=== PATIENT | male | born 1955 | race Hispanic/Latino ===

== ENCOUNTER 2019-06-30 20:17 | Emergency (ER) | payer OTHER, SELFPAY ==
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
== END 2019-06-30 23:29 | disposition home or self-care (01) ==
LOC: ERS 20:17
DX: S02.40EA Zygomatic fracture, right side, initial encounter for closed fracture (principal); S02.85XA Fracture of orbit, unspecified, initial encounter for closed fracture; I10 Essential (primary) hypertension; E11.9 Type 2 diabetes mellitus without complications; V49.9XXA Car occupant (driver) (passenger) injured in unspecified traffic accident, initial encounter
CPT/HCPCS: 70450; 70486; 72125

== ENCOUNTER 2021-04-08 09:55 | Emergency (ER) | payer MEDICARE, SELFPAY ==
[~2021-04-08 09:55] MED LIST: Iopamidol 370 76% 100 ML VIAL ONE
[2021-04-08 10:35] LABS: #Eosinphils 0.1 thou/uL (0.0-0.7); #Lymphocytes 1.1 thou/uL (1.20-3.40); #Monocytes 1.3 thou/uL (0.11-0.59); #Neutrophils 14.2 thou/uL (1.40-6.50); %Basophils 0.1 % (0.0-1.0); %Eosinophils 0.3 % (0.0-10.0); %Lymphocytes 6.7 % (21.0-51.0); %Monocytes 7.7 % (0.0-10.0); %Neutrophils 85.1 % (42.0-75.0); Hemoglobin 10.3 g/dL (14.0-18.0); Mean Corpuscular Hemoglobin 31.7 pg (27.0-31.0); Mean Corpuscular Volume 96.2 fL (78.0-98.0); Mean Platelet Volume 6.6 fL (7.4-10.4); Platelet Count 469 thou/uL (130-400); RBC Distribution Width 11.9 % (11.5-14.5); Red Blood Cell (RBC) Count 3.24 mill/uL (4.70-6.10); White Blood Cell (WBC) Count 16.7 thou/uL (4.8-10.8)
[2021-04-08 11:03] LABS: ALT (SGPT) 21 U/L (8-55); AST (SGOT) 28 U/L (5-34); Albumin 2.3 g/dL (3.4-4.8); Alkaline Phosphatase 366 U/L (40-110); Anion Gap 12 mmol/L (10-20); BUN (Urea Nitrogen) 14 mg/dL (8.4-25.7); Bilirubin, Total 0.7 mg/dL (0.2-1.2); Calc. Creatinine Clearance 0 mL/min (70-130); Calcium 8.1 mg/dL (7.8-10.44); Carbon Dioxide 26 mmol/L (23-31); Chloride 101 mmol/L (98-107); Globulin 3.7 g/dL (2.4-3.5); Glucose 156 mg/dL (80-115); Potassium 3.7 mmol/L (3.5-5.1); Sodium 135 mmol/L (136-145)
[2021-04-08 12:05] LABS: Lipase 11 U/L (8-78); Magnesium 1.9 mg/dL (1.6-2.6)
[2021-04-08] MEDS ORDERED: cefTRIAXone\\ROCEPHIN 1 GM VIAL ONE (13:21)
== END 2021-04-08 10:43 | disposition home or self-care (01) ==
LOC: ERS 09:55
DX: R18.8 Other ascites (principal); K59.00 Constipation, unspecified; D72.829 Elevated white blood cell count, unspecified; I10 Essential (primary) hypertension; E11.9 Type 2 diabetes mellitus without complications; Z86.16 Personal history of COVID-19
CPT/HCPCS: 71045; 74177; 80053; 83690; 83735; 85025; 93005; 94760; 96374; J0696; Q9967

== ENCOUNTER 2024-03-13 11:06 | Inpatient (IN) | payer MEDICARE ==
[2024-03-13] MEDS ORDERED: Ipratropium/Albuterol 3 ML NEB ONE ×2 (12:14→16:25)
[2024-03-13] MEDS ORDERED: methylPREDNISolone Sod Succ/PF 125 MG/2 ML VIAL ONE (12:24)
[2024-03-13] MEDS ORDERED: Ketorolac Tromethamine 30 MG (1 mL) VIAL ONE (12:24)
[2024-03-13 12:44] LABS: #Basophils 0.03 10x3/uL (0.0-0.2); %Basophils 0.3 % (0.0-1.0); %Eosinophils 0.7 % (0.0-10.0); %Lymphocytes 3.6 % (21.0-51.0); %Monocytes 6.5 % (0.0-10.0); %Neutrophils 88.5 % (42.0-75.0); Hemoglobin 8.4 g/dL (14.0-18.0); Mean Corpuscular HGB CONC 31.1 g/dL (32.0-36.0); Mean Corpuscular Hemoglobin 29.9 pg (27.0-31.0); Mean Corpuscular Volume 96.1 fL (78.0-98.0); Mean Platelet Volume 11.1 fL (7.4-10.4); Platelet Count 161 10x3/uL (130-400); RBC Distribution Width 14.2 % (11.5-14.5); Red Blood Cell (RBC) Count 2.81 mill/uL (4.70-6.10)
[2024-03-13 13:03] LABS: ALT (SGPT) 26 U/L (Less than 45); AST (SGOT) 35 U/L (11-34); Albumin 3.5 g/dL (3.1-4.5); Alkaline Phosphatase 171 U/L (40-110); Anion Gap 16 mmol/L (10-20); BUN (Urea Nitrogen) 36 mg/dL (8.4-25.7); Bilirubin, Total 0.4 mg/dL (0.3-1.2); Calc. Creatinine Clearance 0 mL/min (70-130); Calcium 8.8 mg/dL (7.8-10.44); Carbon Dioxide 14 mmol/L (23-31); Chloride 118 mmol/L (98-107); Estimated GFR 29; Globulin 4.1 g/dL (2.4-3.5); Glucose 122 mg/dL (80-115); Lipase 19 U/L (8-78); Magnesium 1.7 mg/dL (1.6-2.6); Potassium 5.8 mmol/L (3.5-5.1); Protein, Total 7.6 g/dL (5.8-8.1); Sodium 142 mmol/L (136-145)
[2024-03-13 13:08] LABS: Troponin I 0.053 ng/mL (< 0.028)
[2024-03-13] MEDS ORDERED: Furosemide 40 MG (4 mL) VIAL ONE (13:27)
[2024-03-13] MEDS ORDERED: Sodium Chloride 0.9% 100 ML ONE (14:43)
[2024-03-13] MEDS ORDERED: Azithromycin 500 MG VIAL ONE (14:43)
[2024-03-13] MEDS ORDERED: cefTRIAXone (ROCEPHIN) 2 GM VIAL ONE (14:43)
[2024-03-13] MEDS ORDERED: Acetaminophen 650 MG Suppository PR PRN (15:14)
[2024-03-13] MEDS ORDERED: Sodium Chloride 0.65% Nasal 44 ML BOT EA NARE PRN (15:14)
[2024-03-13] MEDS ORDERED: Artificial Tear Ophth Sol 15 ML BOT EA EYE PRN (15:14)
[2024-03-13] MEDS ORDERED: Ondansetron PF 4 MG/2 ML Vial IVP PRN (15:14)
[2024-03-13] MEDS ORDERED: Loratadine 10 MG TAB PO PRN (15:14)
[2024-03-13] MEDS ORDERED: Ondansetron ODT 4 MG TAB PO PRN (15:14)
[2024-03-13] MEDS ORDERED: Moisturizing Cream (Eucerin) 113 GM JAR TOP PRN (15:14)
[2024-03-13 16:14] LABS: Troponin I 0.079 ng/mL (< 0.028)
[2024-03-13] MEDS ORDERED: Ipratropium/Albuterol 3 ML NEB NEB PRN (16:16)
[2024-03-13] MEDS ORDERED: Insulin Lispro 100 UNIT/ML 10 ML VIAL SC PRN (17:17)
[2024-03-13] MEDS ORDERED: Dextrose 50% Abboject 50 ML SYRINGE SLOW IVP PRN (17:17)
[2024-03-13] MEDS ORDERED: Dextrose 5% in Water 1,000 ML IV PRN (17:17)
[2024-03-13] MEDS ORDERED: Glucagon 1 MG/ML KIT IM PRN (17:17)
[2024-03-13 18:55] LABS: Anion Gap 16 mmol/L (10-20); BUN (Urea Nitrogen) 41 mg/dL (8.4-25.7); Calc. Creatinine Clearance 0 mL/min (70-130); Calcium 8.3 mg/dL (7.8-10.44); Carbon Dioxide 14 mmol/L (23-31); Chloride 119 mmol/L (98-107); Estimated GFR 28; Glucose 180 mg/dL (80-115); Potassium 5.7 mmol/L (3.5-5.1); Sodium 143 mmol/L (136-145)
[2024-03-13 18:56] LABS: Troponin I 0.109 ng/mL (< 0.028)
[2024-03-13] MEDS: cefTRIAXone\\ROCEPHIN 1 GM in Sodium Chloride 0.9% 100 ML IVPB SCH (19:37)
[2024-03-13] MEDS: Azithromycin 500 MG in Sodium Chloride 0.9% 250 ML 250 ML IVPB SCH (19:37)
[2024-03-13] MEDS: Atorvastatin Calcium 40 MG TAB PO SCH (20:21)
[2024-03-13] MEDS: Sodium Polystyrene Sulfonate 15 GM (60 mL) BOT PO SCH ×2 (20:21→20:22)
[2024-03-13] MEDS: Aspirin 325 MG TAB PO SCH ×2 (20:21→20:22)
[2024-03-13] MEDS: Heparin 5,000 UNITS/ML VIAL SC SCH (20:22)
[2024-03-13 20:42] LABS: Troponin I 0.106 ng/mL (< 0.028)
[2024-03-13 21:57] LABS: Bilirubin Negative (Negative); Blood, Urine 1+ (Negative); Clarity Clear (Clear); Glucose, Urine (Dipstick) 70 mg/dL (Negative); Ketone, Urine Negative (Negative); Leukocyte Negative Leu/uL (Negative); Nitrite Negative (Negative); Protein, Urine (Dipstick) 200 mg/dL (Neg-Trace); RBC/HPF None Seen HPF (0-3); Squamous Epithelial 0-3 HPF (0-3); Urobilinogen Normal mg/dL (Less than 2); WBC/HPF 0-3 HPF (0-3); pH, Urine 5.5 (5.0-9.0)
[2024-03-13 21:58] LABS: Bacteria/HPF 1+ HPF (None Seen)
[2024-03-13 22:21] VITALS: BMI 25.7
[2024-03-14 00:44] LABS: Anion Gap 15 mmol/L (10-20); BUN (Urea Nitrogen) 36 mg/dL (8.4-25.7); Calc. Creatinine Clearance 30 mL/min (70-130); Calcium 8.5 mg/dL (7.8-10.44); Carbon Dioxide 14 mmol/L (23-31); Cardiac Risk 2.1 (Less than 4.5); Chloride 120 mmol/L (98-107); Cholesterol 171 mg/dl (< 200 Desired); Estimated GFR 29; Glucose 222 mg/dL (80-115); HDL Cholesterol 80 mg/dL (>60 Neg Risk); LDL Cholesterol, Calculated 82 mg/dL; Potassium 5.5 mmol/L (3.5-5.1); Sodium 143 mmol/L (136-145); Triglycerides 46 mg/dL (Less than 150)
[2024-03-14] MEDS: Sodium Polystyrene Sulfonate 15 GM (60 mL) BOT PO SCH (02:36)
[2024-03-14] MEDS: Guaifenesin DM 100-10/5 ML UDCUP PO PRN (05:39)
[2024-03-14 05:49] LABS: #Basophils Less than 0.03 10x3/uL (0.0-0.2); #Eosinophils Less than 0.03 10x3/uL (0.0-0.7); %Basophils 0.2 % (0.0-1.0); %Lymphocytes 10.3 % (21.0-51.0); %Monocytes 11.2 % (0.0-10.0); %Neutrophils 77.4 % (42.0-75.0); Hematocrit 23.1 % (42.0-52.0); Hemoglobin 7.1 g/dL (14.0-18.0); Mean Corpuscular HGB CONC 30.7 g/dL (32.0-36.0); Mean Corpuscular Hemoglobin 29.6 pg (27.0-31.0); Mean Corpuscular Volume 96.3 fL (78.0-98.0); Mean Platelet Volume 11.1 fL (7.4-10.4); Platelet Count 119 10x3/uL (130-400); RBC Distribution Width 14.5 % (11.5-14.5)
[2024-03-14 06:07] LABS: Anion Gap 15 mmol/L (10-20); BUN (Urea Nitrogen) 46 mg/dL (8.4-25.7); Calc. Creatinine Clearance 27 mL/min (70-130); Calcium 8.5 mg/dL (7.8-10.44); Carbon Dioxide 16 mmol/L (23-31); Chloride 121 mmol/L (98-107); Estimated GFR 26; Glucose 184 mg/dL (80-115); Potassium 5.5 mmol/L (3.5-5.1); Sodium 146 mmol/L (136-145)
[2024-03-14] MEDS: Insulin Lispro 100 UNIT/ML 10 ML VIAL SC PRN (06:16)
[2024-03-14 07:03] LABS: ALT (SGPT) 21 U/L (Less than 45); AST (SGOT) 38 U/L (11-34); Albumin 2.9 g/dL (3.1-4.5); Alkaline Phosphatase 135 U/L (40-110); Bilirubin, Direct 0.1 mg/dL (0.1-0.3); Bilirubin, Total 0.2 mg/dL (0.3-1.2); Protein, Total 6.2 g/dL (5.8-8.1)
[2024-03-14] MEDS: Aspirin Chewable 81 MG TAB PO SCH (08:37)
[2024-03-14] MEDS: NIFEdipine XL 30 MG ER.TAB PO SCH (08:37)
[2024-03-14 08:55] LABS: Iron 9 ug/dL (65-175); Iron Binding Capacity, Total 284 mcg/dL (261-462)
[2024-03-14] MEDS: LOKELMA 10 GM PACKET PO SCH (09:39)
[2024-03-14 11:36] VITALS: BMI 25.7
[2024-03-14] MEDS: Albumin 25% 25 GM (100 mL) BOT IVPB SCH (11:46)
[2024-03-14] MEDS: Pantoprazole 40 MG VIAL IVP SCH ×2 (12:52→21:18)
[2024-03-14] MEDS: Albuterol 2.5 MG (3 mL) NEB NEB SCH (15:16)
[2024-03-14 20:17] LABS: Hematocrit 25.7 % (42.0-52.0); Hemoglobin 8.2 g/dL (14.0-18.0)
[2024-03-14] MEDS: Nitroglycerin 0.4 MG TAB (25 Tab Bottle) SL PRN (21:25)
[2024-03-15] MEDS: Albumin 25% 25 GM (100 mL) BOT IVPB SCH (04:38)
[2024-03-15 05:38] LABS: #Basophils Less than 0.03 10x3/uL (0.0-0.2); #Eosinophils Less than 0.03 10x3/uL (0.0-0.7); %Basophils 0.2 % (0.0-1.0); %Lymphocytes 16.7 % (21.0-51.0); %Monocytes 7.7 % (0.0-10.0); %Neutrophils 75.2 % (42.0-75.0); Hematocrit 24.1 % (42.0-52.0); Hemoglobin 7.7 g/dL (14.0-18.0); Mean Corpuscular Hemoglobin 29.5 pg (27.0-31.0); Mean Corpuscular Volume 92.3 fL (78.0-98.0); Mean Platelet Volume 11.1 fL (7.4-10.4); Platelet Count 106 10x3/uL (130-400); RBC Distribution Width 15.6 % (11.5-14.5); Red Blood Cell (RBC) Count 2.61 mill/uL (4.70-6.10)
[2024-03-15 05:48] LABS: Anion Gap 14 mmol/L (10-20); BUN (Urea Nitrogen) 53 mg/dL (8.4-25.7); Calc. Creatinine Clearance 27 mL/min (70-130); Calcium 8.3 mg/dL (7.8-10.44); Carbon Dioxide 16 mmol/L (23-31); Chloride 116 mmol/L (98-107); Estimated GFR 26; Glucose 103 mg/dL (80-115); Potassium 4.1 mmol/L (3.5-5.1); Sodium 142 mmol/L (136-145)
[2024-03-15] MEDS: Carvedilol 6.25 MG TAB PO SCH (08:55)
[2024-03-15] MEDS: Pantoprazole 40 MG VIAL IVP SCH (08:56)
[2024-03-15] MEDS: Dapagliflozin Propanediol 10 MG TAB PO SCH (08:56)
[2024-03-15] MEDS: hydrALAZINE 10 MG TAB PO SCH (15:42)
[2024-03-15] MEDS: Ferrous Sulfate 325 MG TAB PO SCH (16:36)
[2024-03-16] MEDS: Labetalol HCl 100 MG/20 ML VIAL SLOW IVP PRN (02:01)
[2024-03-16 05:58] LABS: #Basophils Less than 0.03 10x3/uL (0.0-0.2); #Eosinophils Less than 0.03 10x3/uL (0.0-0.7); %Basophils 0.5 % (0.0-1.0); %Lymphocytes 29.1 % (21.0-51.0); %Monocytes 9.8 % (0.0-10.0); %Neutrophils 60.3 % (42.0-75.0); Hematocrit 24.3 % (42.0-52.0); Hemoglobin 7.6 g/dL (14.0-18.0); Mean Corpuscular HGB CONC 31.3 g/dL (32.0-36.0); Mean Corpuscular Hemoglobin 29.7 pg (27.0-31.0); Mean Corpuscular Volume 94.9 fL (78.0-98.0); Mean Platelet Volume 11.7 fL (7.4-10.4); Platelet Count 101 10x3/uL (130-400); RBC Distribution Width 15.7 % (11.5-14.5); Red Blood Cell (RBC) Count 2.56 mill/uL (4.70-6.10)
[2024-03-16 06:25] LABS: Anion Gap 14 mmol/L (10-20); BUN (Urea Nitrogen) 53 mg/dL (8.4-25.7); Calc. Creatinine Clearance 27 mL/min (70-130); Calcium 8.1 mg/dL (7.8-10.44); Carbon Dioxide 17 mmol/L (23-31); Chloride 115 mmol/L (98-107); Estimated GFR 26; Glucose 78 mg/dL (80-115); Potassium 3.7 mmol/L (3.5-5.1); Sodium 142 mmol/L (136-145)
[2024-03-16] MEDS: Isosorbide Mononitrate 30 MG ER.TAB PO SCH (08:54)
[2024-03-16] MEDS: Pantoprazole 40 MG DR.TAB PO SCH (08:55)
[2024-03-16] MEDS: Furosemide 40 MG TAB PO SCH (08:56)
[2024-03-16] MEDS ORDERED: hydrALAZINE 10 MG TAB PO SCH (11:58)
[2024-03-16] MEDS: hydrALAZINE 25 MG TAB PO SCH (14:16)
[2024-03-16] MEDS: Carvedilol 6.25 MG TAB PO SCH (16:15)
[2024-03-17] MEDS: Carvedilol 6.25 MG TAB PO SCH (07:56)
[2024-03-17] MEDS: cloNIDine 0.2 MG TAB PO SCH (07:56)
[2024-03-17] MEDS: hydrALAZINE 25 MG TAB PO SCH (09:00)
[2024-03-17] MEDS: hydrALAZINE 20 MG/ML VIAL SLOW IVP PRN (23:53)
[2024-03-18] MEDS: Acetaminophen 325 MG TAB PO PRN (09:33)
[2024-03-18] MEDS: cloNIDine 0.1 MG TAB PO SCH (09:35)
[2024-03-18 13:09] LABS: Hematocrit 23.8 % (42.0-52.0); Hemoglobin 7.6 g/dL (14.0-18.0); Mean Corpuscular HGB CONC 31.9 g/dL (32.0-36.0); Mean Corpuscular Hemoglobin 29.1 pg (27.0-31.0); Mean Corpuscular Volume 91.2 fL (78.0-98.0); Mean Platelet Volume 10.7 fL (7.4-10.4); Platelet Count 95 10x3/uL (130-400); RBC Distribution Width 14.8 % (11.5-14.5); Red Blood Cell (RBC) Count 2.61 mill/uL (4.70-6.10)
[2024-03-18 13:19] LABS: Anion Gap 13 mmol/L (10-20); BUN (Urea Nitrogen) 58 mg/dL (8.4-25.7); Calc. Creatinine Clearance 26 mL/min (70-130); Carbon Dioxide 16 mmol/L (23-31); Chloride 113 mmol/L (98-107); Estimated GFR 26; Glucose 141 mg/dL (80-115); Potassium 3.3 mmol/L (3.5-5.1); Sodium 139 mmol/L (136-145)
[2024-03-18] MEDS: Potassium Chloride 20 MEQ TAB PO SCH (13:39)
[2024-03-18] MEDS: hydrALAZINE 25 MG TAB PO SCH (14:53)
[2024-03-18] MEDS: Carvedilol 6.25 MG TAB PO SCH (17:04)
[2024-03-19 08:48] VITALS: TEMP 98
[2024-03-19 14:51] VITALS: BP 172/74
== END 2024-03-19 15:00 | disposition home or self-care (01) | DRG 280 ==
LOC: ERS 11:06 → ERHOLD 16:16 → OBS 18:38
PROVIDERS: ADMIT Family Medicine; ATTEND Internal Medicine
PROC: 30233J1 Transfusion of Nonautologous Serum Albumin into Peripheral Vein, Percutaneous Approach (ICD-10-PCS; principal; 2024-03-13)
PROC: 30233N1 Transfusion of Nonautologous Red Blood Cells into Peripheral Vein, Percutaneous Approach (ICD-10-PCS; 2024-03-13)
DX: I13.0 Hypertensive heart and chronic kidney disease with heart failure and stage 1 through stage 4 chronic kidney disease, or unspecified chronic kidney disease (principal); I50.21 Acute systolic (congestive) heart failure; I21.A1 Myocardial infarction type 2; J18.9 Pneumonia, unspecified organism; N17.9 Acute kidney failure, unspecified; I27.20 Pulmonary hypertension, unspecified; E87.5 Hyperkalemia; N18.30 Chronic kidney disease, stage 3 unspecified; E11.22 Type 2 diabetes mellitus with diabetic chronic kidney disease; D63.1 Anemia in chronic kidney disease; E11.21 Type 2 diabetes mellitus with diabetic nephropathy; I42.9 Cardiomyopathy, unspecified; Z79.899 Other long term (current) drug therapy; Z79.84 Long term (current) use of oral hypoglycemic drugs; R74.01 Elevation of levels of liver transaminase levels; E83.39 Other disorders of phosphorus metabolism; Z79.82 Long term (current) use of aspirin
CPT/HCPCS: 36415; 36416; 36430; 71046; 71250; 74177; 76770; 80048; 80053; 80061; 80076; 81001; 82274; 82728; 83540; 83550; 83605; 83690; 83735; 83880; 84484; 85025; 85027; 85046; 86850; 86870; 86900; 86901; 86922; 87040; 87070; 87205; 87428; 93005; 93306; 94640; 96374; 96375; J0360; J0456; J0696; J1644; J1815; J1885; J1940; J2470; J2919; J7050; J7620; P9016; P9047